=== PATIENT | female | born 1965 ===

== ENCOUNTER 2016-09-20 11:41 | Observation (INO) | payer SELFPAY ==
[2016-09-12 10:05] VITALS: BMI 24.7
[2016-09-20] MEDS ORDERED: Propofol 10 mg/ml Inj (20 ML) ONE (11:57)
[2016-09-20] MEDS ORDERED: Lidocaine Hydrochloride 10 ML INJ ONE (11:58)
[2016-09-20] MEDS ORDERED: Midazolam 2 MG/2 ML VIAL ONE (11:58)
[2016-09-20] MEDS ORDERED: Succinylcholine 200 mg/10 ml Inj IV ONE (11:58)
[2016-09-20] MEDS ORDERED: Lidocaine 2% w Epi 1:100,000 Inj IJ ONE (12:02)
--- NOTE | 2016-09-20 12:34 | CP.SDSHP ---
Same Day Surgery H & P - History Proposed Procedure: Left Thyroid Lobectomy Pre-Op Diagnosis: Left Thyroid Nodule - Previous Medical/Surgical History Endocrine/Metabolic: Thyroid Disease (3cm nodule, FNA bx returned follicular cells) Pain: 0. No Pain Previous Surgical History: Cholecystectomy, Hysterectomy - Allergies Allergies: Allergies tramadol Allergy (Intermediate, Verified 02/24/16 10:11) SHORTNESS OF BREATH tachycardia morphine Allergy (Verified 11/22/15 22:06) RASH - Physical Exam General Appearance: well nourished, NAD Vital Signs: Vital Signs 09/20/16 09/20/16 11:56 11:58 Temperature 98.2 F 98.2 F Pulse Rate 74 74 Respiratory 18 18 Rate Blood Pressure 146/72 146/72 O2 Sat by Pulse 99 99 Oximetry Mental Status: Alert & Oriented x3 Neuro: WNL Heart: WNL Lungs: WNL GI: WNL - Impression Impression: 51yo F otherwise healthy with 3cm Left thyroid nodule - Date & Time Date: 09/20/16 Time: 12:33 Short Stay Discharge - Short Stay Discharge Admitting Diagnosis/Reason for Visit: E07.89 Disposition: HOME/ ROUTINE
[2016-09-20] MEDS ORDERED: Lactated Ringer's 1,000 ML IV ONE (12:51)
[2016-09-20] MEDS ORDERED: Dexamethasone 4 mg/1 ml ONE (13:35)
[2016-09-20] MEDS ORDERED: Desflurane Inhalation Anesthetic Liq (240 ml) ONE (14:32)
[2016-09-20] MEDS ORDERED: HYDROmorphone 0.5 mg/0.5 ml ISec IVP PRN (14:42)
[2016-09-20] MEDS ORDERED: Lactated Ringer's 500 ML IV ONE (14:48)
[2016-09-20] MEDS ORDERED: Sodium Chloride 0.9% 500 ML IV ONE (15:09)
[2016-09-20] MEDS ORDERED: Oxycodone/Acetaminophen 5/325 mg Tab PO PRN (15:16)
--- NOTE | 2016-09-20 15:23 | PCM.SURG1 ---
Surgeon's Initial Post Op Note - Surgeon's Notes Surgeon: Shon Ell Tutor: PGY3, Vamsi PGY2 Type of Anesthesia: General Endo Pre-Operative Diagnosis: L thyroid nodule Operative Findings: see op report Post-Operative Diagnosis: L thyroid nodule Operation Performed: L thyroid lobectomy Specimen/Specimens Removed: L thyroid lobe Estimated Blood Loss: EBL {In ML}: 30 Blood Products Given: N/A Drains Used: Teja Post-Op Condition: Good Date of Surgery/Procedure: 09/20/16 Time of Surgery/Procedure: 12:50
[2016-09-20] MEDS ORDERED: Sodium Chloride 0.9% 1,000 ML IV SCH (15:30)
[2016-09-20] MEDS ORDERED: Sodium Chloride 0.9% 1,000 ML IV ONE (17:16)
[2016-09-21 04:23] VITALS: PULSE 65
[2016-09-21 06:58] LABS: BASO % 0.2 % (0.0-2.0); HEMATOCRIT 36.9 % (34.0-47.0); LYMPH % 22.3 % (20.0-40.0); MEAN CELL VOLUME 92.3 fl (81.0-99.0); MEAN CORPUSCULAR HEMOGLOBIN 31.3 pg (27.0-31.0); MEAN CORPUSCULAR HGB CONC 33.9 g/dL (33.0-37.0); MEAN PLATELET VOLUME 7.5 fl (7.2-11.7); MONO # 0.5 K/uL (0.0-0.8); MONO % 5.1 % (0.0-10.0); NEUT # 6.5 K/uL (1.8-7.0); NEUT % 72.4 % (50.0-75.0); NRBC % 0.1 % (0.0-0.0); RED CELL DISTRIBUTION WIDTH 12.7 % (11.5-14.5)
[2016-09-21 07:11] LABS: BLOOD UREA NITROGEN 14 mg/dl (7-17); CARBON DIOXIDE 24 mmol/L (22-30); CHLORIDE 105 mmol/L (98-107); GFR AFRICAN-AMERICAN > 60; GLUCOSE,RANDOM 94 mg/dL (65-105); POTASSIUM 4.2 MMOL/L (3.6-5.0); SODIUM 142 mmol/l (132-148)
[2016-09-21 07:44] VITALS: BP 124/72; RESP 20; TEMP 98.1; O2SAT 98
--- NOTE | 2016-09-21 09:34 | CP.PCM.DIS ---
Provider - Provider Date of Admission: 09/20/16 15:16 Attending physician: Emmanuelle Menendez MD Primary care physician: Padmini Castellano MD Time Spent in preparation of Discharge (in minutes): 20 Hospital Course - Lab Results Lab Results: Most Recent Lab Values WBC 9.0 K/uL (4.8-10.8) D 09/21/16 06:44 RBC 4.00 Mil/uL (3.80-5.20) 09/21/16 06:44 Hgb 12.5 g/dL (12.0-16.0) 09/21/16 06:44 Hct 36.9 % (34.0-47.0) 09/21/16 06:44 MCV 92.3 fl (81.0-99.0) 09/21/16 06:44 MCH 31.3 pg (27.0-31.0) H 09/21/16 06:44 MCHC 33.9 g/dL (33.0-37.0) 09/21/16 06:44 RDW 12.7 % (11.5-14.5) 09/21/16 06:44 Plt Count 207 K/uL (130-400) 09/21/16 06:44 MPV 7.5 fl (7.2-11.7) 09/21/16 06:44 Neut % (Auto) 72.4 % (50.0-75.0) 09/21/16 06:44 Lymph % (Auto) 22.3 % (20.0-40.0) 09/21/16 06:44 [place] % (Auto) 5.1 % (0.0-10.0) 09/21/16 06:44 Eos % (Auto) 0.0 % (0.0-4.0) 09/21/16 06:44 Baso % (Auto) 0.2 % (0.0-2.0) 09/21/16 06:44 Neut # 6.5 K/uL (1.8-7.0) 09/21/16 06:44 Lymph # 2.0 K/uL (1.0-4.3) 09/21/16 06:44 [place] # 0.5 K/uL (0.0-0.8) 09/21/16 06:44 Eos # 0.0 K/uL (0.0-0.7) 09/21/16 06:44 Baso # 0.0 K/uL (0.0-0.2) 09/21/16 06:44 Sodium 142 mmol/l (132-148) 09/21/16 06:44 Potassium 4.2 MMOL/L (3.6-5.0) 09/21/16 06:44 Chloride 105 mmol/L (98-107) 09/21/16 06:44 Carbon Dioxide 24 mmol/L (22-30) 09/21/16 06:44 Anion Gap 17 (10-20) 09/21/16 06:44 BUN 14 mg/dl (7-17) 09/21/16 06:44 Creatinine 0.9 mg/dL (0.7-1.2) 09/21/16 06:44 Est GFR ( Amer) > 60 09/21/16 06:44 Est GFR (Non-Af Amer) > 60 09/21/16 06:44 Random Glucose 94 mg/dL (65-105) 09/21/16 06:44 Calcium 9.0 mg/dL (8.4-10.2) 09/21/16 06:44 - Hospital Course Hospital Course: 51 yo F admitted to the hospital for observation after undergoing Left Thyroid Lobectomy on 09/20/[address] Menendez. Pt did well postoperatively. She tolerated liquid diet that evening. The following day pt labs were all within normal limits, she was ambulating, tolerating regular diet, pain was well controlled with PO medications. Her drain put out 35cc serosanguinous drainage after surgery and was removed in the morning. Pt was sent home with Rx for pain medications and instruction to F/U in office in 2 weeks. Discharge Exam - Head Exam Head Exam: ATRAUMATIC, NORMAL INSPECTION, NORMOCEPHALIC - Eye Exam Eye Exam: Normal appearance - ENT Exam Additional comments: surgical incision C/D/I with steristrips - Neck Exam Neck exam: Normal Inspection, Tenderness (mild) Additional comments: no hematoma or ecchymosis - Respiratory Exam Respiratory Exam: NORMAL BREATHING PATTERN. absent: Respiratory Distress - Neurological Exam Neurological exam: Alert, Oriented x3 - Psychiatric Exam Psychiatric exam: Normal Affect, Normal Mood - Skin Skin Exam: Dry, Intact Discharge Plan - Discharge Medications Prescriptions: oxyCODONE/Acetaminophen [Percocet 5/325 mg Tab] 1 tab PO Q4 PRN #30 tab PRN Reason: Pain, Moderate (4-7) - Follow Up Plan Condition: GOOD Disposition: HOME/ ROUTINE Additional Instructions: You may remove dressing tomorrow and you may shower. Steristrips to remain in place until office visit or until they fall off on their own. You may have regular diet and resume light activities. Take Percocet as prescribed for pain. Make and appointment to see Dr. Menendez in office in 2 weeks. Referrals: Padmini Castellano MD [Primary Care Provider] - Emmanuelle Menendez MD [Staff Provider] -
--- NOTE | 2016-09-21 18:10 | OP ---
PROCEDURE DATE: 09/21/2016 SURGEON: Dr. Menendez. FISH AND GAME WARDEN: Dr. Titus and Dr. Agustin. ANESTHESIA: General, Dr. Reece. PREOPERATIVE DIAGNOSIS: Left thyroid nodule. POSTOPERATIVE DIAGNOSIS: Left thyroid nodule. PROCEDURE: Left thyroid lobectomy. DESCRIPTION OF OPERATION: With the patient in the supine position under adequate general anesthesia, a thyroid cushion was placed beneath the shoulders and the neck was extended. The neck was prepped and draped in the usual sterile manner. A 1 inch nodule was palpable in the lower lateral left porti on of the thyroid and using a silk suture an incision was marked parallel to the skin lines 2 fingerb readths above the sternal notch. Skin incision was made, taken down through the full thickness of sk in and platysma and a subplatysmal flap was raised upward and downward to expose the strap muscles. The strap muscles were incised in the midline and opened and the nodule was easily palpable in the lo wer portion of thyroid. The strap muscles were not divided horizontally. The gentle traction on the lower pole of the thyroid was used and the lower pole was dissected, identifying the inferior pole v essels. The vessels were clamped, divided, and ligated with 3-0 silk ties. The lower lobe was then gently retracted medially inferiorly, freeing the thyroid from the surrounding tissue until the recur rent laryngeal nerve was identified passing beneath the thyroid and into the trachea esophageal root. The middle thyroid vessels were identified close to this point and also clamped, divided and ligate d using silk ties. The dissection continued upward retracting the thyroid medially and inferiorly to similarly expose the upper pole which was also clamped, divided, and ligated with silk ties. The th yroid was then dissected off the trachea with the areolar tissue being divided using the Harmonic sca lpel and the isthmus was then clamped with Lalita clamps and divided. The isthmus was suture ligated also with 3-0 silk sutures. The left lobe of the thyroid was noted to be thin and soft textured wit h the exception of the single soft but firm, well delineated 1 inch nodule which was previously ident ified. The left lobe was sent to pathology. The operative site was examined for hemostasis and a 15 Italian Teja drain was placed in the left neck surgical site and brought out through an inferior sta b incision. The strap muscles were then reapproximated in the midline with 3-0 Vicryl sutures. The platysma was approximated also with a few 3-0 Vicryl sutures and running subcuticular closure was per formed with 4-0 Monocryl and Steri-Strips. Dry sterile dressing was applied. The patient tolerated the procedure well and transferred to recovery room in stable condition. Estimated blood loss for th e procedure was 30 mL. Emmanuelle Menendez MD cc: 58 TT: 09/21/2016 18:10:22 jn
== END 2016-09-21 12:46 | disposition home or self-care (01) ==
LOC: H.OPSURG 11:41 → H.MEDSURG1 15:16
PROVIDERS: ADMIT Specialist; ATTEND Specialist
DX: E04.1 Nontoxic single thyroid nodule (principal); Z88.6 Allergy status to analgesic agent; Z88.5 Allergy status to narcotic agent

== ENCOUNTER 2016-10-02 08:52 | Emergency (ER) | payer SELFPAY ==
[2016-10-02 08:59] VITALS: BP 142/78; PULSE 72; TEMP 97; O2SAT 98
[2016-10-02 09:00] VITALS: BMI 23.6
[2016-10-02 09:42] LABS: BASO % 0.8 % (0.0-2.0); EOS # 0.1 K/uL (0.0-0.7); EOS % 1.7 % (0.0-4.0); HEMATOCRIT 36.8 % (34.0-47.0); LYMPH # 1.8 K/uL (1.0-4.3); LYMPH % 40.8 % (20.0-40.0); MEAN CELL VOLUME 91.2 fl (81.0-99.0); MEAN CORPUSCULAR HEMOGLOBIN 30.9 pg (27.0-31.0); MEAN CORPUSCULAR HGB CONC 33.9 g/dL (33.0-37.0); MEAN PLATELET VOLUME 6.8 fl (7.2-11.7); MONO # 0.3 K/uL (0.0-0.8); MONO % 5.9 % (0.0-10.0); NEUT # 2.2 K/uL (1.8-7.0); NEUT % 50.8 % (50.0-75.0); RED CELL DISTRIBUTION WIDTH 12.8 % (11.5-14.5); WHITE BLOOD COUNT 4.3 K/uL (4.8-10.8)
[2016-10-02 09:49] LABS: ALB/GLOB RATIO 1.2 (1.0-2.1); ALKALINE PHOSPHATASE 65 U/L (38-126); ALT/SGPT 42 U/L (9-52); AST/SGOT 33 U/L (14-36); BILIRUBIN,TOTAL 0.4 mg/dl (0.2-1.3); BLOOD UREA NITROGEN 15 mg/dl (7-17); CALCIUM 9.3 mg/dL (8.4-10.2); CARBON DIOXIDE 26 mmol/L (22-30); CHLORIDE 104 mmol/L (98-107); GFR AFRICAN-AMERICAN > 60; GLUCOSE,RANDOM 98 mg/dL (65-105); POTASSIUM 4.1 MMOL/L (3.6-5.0); SODIUM 140 mmol/l (132-148); TOTAL PROTEIN 7.8 G/DL (6.3-8.2)
--- NOTE | 2016-10-02 10:19 | ED PDOC ---
HPI: General Adult Time Seen by Provider: 10/02/16 09:06 Chief Complaint (Nursing): Abnormal Skin Integrity Chief Complaint (Provider): Redness around incision sight History Per: Patient History/Exam Limitations: no limitations Onset/Duration Of Symptoms: Days Current Symptoms Are (Timing): Still Present Severity: Mild Additional Complaint(s): Patient is a 51 female, who recently had a partial thyroidectomy on September 20, presents to the ED complaining of redness around incision sight x4 days. Patient reports uneventful post op course until this weekend and then she noticed mild redness and swelling around surgical sight. Patient feels a lump when swallowing but no neck pain or throat pain. Patient spoke to Dr. Menendez over the weekend who was advised to visit the ED for evaluation. Denies fever or discharge. Denies wound dehiscence. Denies muscle cramping or weakness. PMD: none Past Medical History Reviewed: Historical Data, Nursing Documentation, Vital Signs Vital Signs: Last Vital Signs Temp 97 F L 10/02/16 08:58 Pulse 72 10/02/16 08:58 Resp BP 142/78 10/02/16 08:58 Pulse Ox 98 10/02/16 08:58 - Medical History PMH: Gastritis Denies: Chronic Kidney Disease - Surgical History Surgical History: Cholecystectomy, Endoscopy - Family History Family History: States: No Known Family Hx - Immunization History Hx Tetanus Toxoid Vaccination: No Hx Influenza Vaccination: Yes Hx Pneumococcal Vaccination: No - Home Medications Home Medications: Ambulatory Orders Medication Instructions Recorded oxyCODONE/Acetaminophen [Percocet 1 tab PO Q4 PRN #30 tab 09/21/16 5/325 mg Tab] - Allergies Allergies/Adverse Reactions: Allergies Allergy/AdvReac Type Severity Reaction Status Date / Time tramadol Allergy Intermediate SHORTNESS Verified 02/24/16 10:11 OF BREATH morphine Allergy RASH Verified 11/22/15 22:06 Review of Systems ROS Statement: Except As Marked, All Systems Reviewed And Found Negative Constitutional: Positive for: Other (redness and swelling around incision sight ). Negative for: Fever ENT: Negative for: Throat Pain Respiratory: Negative for: Cough, Shortness of Breath Musculoskeletal: Negative for: Neck Pain Neurological: Negative for: Weakness, Headache Physical Exam - Reviewed Nursing Documentation Reviewed: Yes Vital Signs Reviewed: Yes - Physical Exam Appears: Positive for: Well, Non-toxic, No Acute Distress Head Exam: Positive for: ATRAUMATIC, NORMAL INSPECTION, NORMOCEPHALIC Skin: Positive for: Normal Color, Warm, DRY Eye Exam: Positive for: Normal appearance Neck: Positive for: Normal (surgial incision to interior neck is clean intact dry non-tender no discharge fluctuance or dehiscence) Cardiovascular/Chest: Positive for: Regular Rate, Rhythm. Negative for: Gallop , Murmur Respiratory: Positive for: Normal Breath Sounds. Negative for: Accessory Muscle Use, Rhonchi, Respiratory Distress Extremity: Positive for: Normal ROM Neurologic/Psych: Positive for: Alert, Oriented - Laboratory Results Result Diagrams: 10/02/16 09:32 10/02/16 09:32 - ECG O2 Sat by Pulse Oximetry: 98 (RA) Pulse Ox Interpretation: Normal Medical Decision Making Medical Decision Making: Time: 9:10 Impression: 51 y/o female c/o redness around surgical sign Plan: Basic blood work to confirm calcium levels and WBC Talked to Dr. Menendez. 10;00 dr. Menendez sees patient and made aware of calcium and WBC. Dr. Menendez states patient is stable for discharge home. Scribe Attestation: Documented by Catarina Horner acting as a scribe for Uriah Cohen MD. Scribe Attestation: All medical record entries made by the Scribe were at my direction and personally dictated by me. I have reviewed the chart and agree that the record accurately reflects my personal performance of the history, physical exam, medical decision making, and the department course for this patient. I have also personally directed, reviewed, and agree with the discharge instructions and disposition. Disposition - Clinical Impression Clinical Impression: Encounter for postoperative wound check - Patient ED Disposition Is Patient to be Admitted: No Counseled Patient/Family Regarding: Studies Performed, Diagnosis - Disposition Referrals: [facility] [Outside] Disposition: Routine/Home Disposition Time: 10:10 Condition: STABLE Additional Instructions: Followup with clinic as directed. Return to ER for any new or worsening symptoms, fever, redness, difficulty swallowing or any concern. Instructions: Acute Wound Care (ED) Print Language: MALTESE
== END 2016-10-02 10:14 | disposition home or self-care (01) ==
LOC: H.ER 08:52
DX: Z48.01 Encounter for change or removal of surgical wound dressing (principal)